=== PATIENT | male | born 1975 | race Caucasian/White ===

== ENCOUNTER → 2020-10-21 | Outpatient (CLI) | payer OTHER | LOC: M LABCAHC 13:50 | PROVIDERS: ATTEND Pediatrics | DX: Z11.59 Encounter for screening for other viral diseases (principal) ==

== ENCOUNTER → 2025-03-27 | Outpatient (CLI) | payer BC | LOC: M RAD 16:17 | PROVIDERS: ATTEND Nurse Practitioner Family | DX: R10.9 Unspecified abdominal pain (principal) ==

== ENCOUNTER → 2025-05-30 | Outpatient (REF) | payer BC ==
[2025-05-30 14:56] LABS: C REACTIVE PROTEIN QUANTITATIV < 0.50 MG/DL (<1.0)
[2025-05-30 16:12] LABS: RHEUMATOID FACTOR QUANT < 3.5 IU/ML (<14)
[2025-06-04 01:13] LABS: BORRELIA SPECIES DNA NOT DETECTED (NOT DETECT)
[2025-06-04 05:31] LABS: LEAD BLOOD ADULT 22.4 mcg/dL (<3.5)
[2025-06-04 20:02] LABS: LYME TOTAL ANTIBODY CIA <= 0.90 Index (<=0.90)
== END ==
LOC: M LAB REF 13:46
PROVIDERS: ATTEND Nurse Practitioner Family
DX: R78.71 Abnormal lead level in blood (principal); M25.50 Pain in unspecified joint; M79.10 Myalgia, unspecified site; R53.83 Other fatigue

== ENCOUNTER → 2025-07-18 | Outpatient (REF) | payer BC ==
[~2025-07-18] MED LIST: D 1010004 PO
[2025-07-24 17:32] LABS: TESTOSTERONE FREE (DIRECT) 63.9 pg/mL (35.0-155.0); TESTOSTERONE TOTAL FOR T&D 392.0 ng/dL (250-1100)
== END ==
LOC: M LAB REF 14:19
PROVIDERS: ATTEND Nurse Practitioner Family
DX: R53.83 Other fatigue (principal)

== ENCOUNTER 2025-07-24 06:43 | Day surgery (SDC) | payer BC ==
[~2025-07-24] VITALS: Ht 180.3 cm; Wt 95.4 kg
[2025-07-24] MEDS ORDERED: LIDOCAINE 2% 100 MG/5 ML SDV (FOR ANES.) As Ordered ONE (07:27)
[2025-07-24] MEDS ORDERED: KETAMINE HCL 200 MG/20 ML VIAL As Ordered ONE (07:32)
[2025-07-24] MEDS ORDERED: GLYCOPYRROLATE INJ 0.2 MG/ML 2 ML VIAL As Ordered ONE (07:35)
[2025-07-24] MEDS ORDERED: LABETALOL 100 MG/20 ML VIAL As Ordered ONE (07:39)
[2025-07-24 07:47] VITALS: TEMP 97.9
[2025-07-24 08:01] VITALS: BP 131/99; O2SAT 97
== END 2025-07-24 08:15 | disposition home or self-care (01) ==
LOC: M OPP 06:43
PROVIDERS: ATTEND Surgery
DX: Z12.11 Encounter for screening for malignant neoplasm of colon (principal); D12.8 Benign neoplasm of rectum; K57.30 Diverticulosis of large intestine without perforation or abscess without bleeding; K64.0 First degree hemorrhoids; K29.70 Gastritis, unspecified, without bleeding; R10.13 Epigastric pain; Z79.899 Other long term (current) drug therapy
CPT/HCPCS: 43239; 45385; 88305; J1596; J1920